=== PATIENT | female | born 1965 | race Caucasian/White ===

== ENCOUNTER 2017-05-25 10:05 | Emergency (ER) | payer MEDICARE, MEDICAID ==
[2017-05-25 10:29] VITALS: BP 118/53
--- NOTE | 2017-05-25 11:17 | UC ---
Respiratory Complaint HPI - HPI Summary HPI Summary: Cough began last night, 3 days ago FSBS >400 today and yesterday in the 's, patient lives in custodial and did get a flu vaccine c/o pain in the center of her chest with cough and deep breaths - History of Current Complaint Chief Complaint: UCRespiratory Stated Complaint: CONGESTION/COUGH Time Seen by Provider: 05/25/17 11:03 Hx Obtained From: Patient ?: No Onset/Duration: Sudden Onset, Lasting Days - 1, Still Present Timing: Constant Severity Initially: Mild Severity Currently: Mild Character: Cough: Nonproductive Aggravating Factors: Nothing Alleviating Factors: Nothing Associated Signs And Symptoms: Positive: Pleuritic Chest Pain, URI - Allergies/Home Medications Allergies/Adverse Reactions: Allergies Allergy/AdvReac Type Severity Reaction Status Date / Time Aripiprazole [From Abilify] Allergy Unknown Verified 05/25/17 10:30 Reaction Details Penicillins Allergy Unknown Verified 10/13/13 14:26 Reaction Details Home Medications: Home Medications See [facility] Med List 05/25/16 05/25/17 [History] PMH/Surg Hx/FS Hx/Imm Hx Previously Healthy: No Endocrine History: Diabetes, Hypothyroidism GI/ History: Gastroesophageal Reflux Psychological History: Depression, Other - MR/DD Other Psychological History: MR/DD - Surgical History Surgical History: Yes Surgery Procedure, Year, and Place: [facility]. carpal tunnel - Family History Known Family History: Positive: None - Social History Occupation: Disabled Lives: Residential Alcohol Use: None Substance Use Type: None Smoking Status (MU): Former Smoker - Immunization History Most Recent Influenza Vaccination: 2016/2017 Review of Systems Constitutional: Negative Skin: Negative Eyes: Negative ENT: Negative Respiratory: Cough Cardiovascular: Chest Pain - with cough and deep breath Gastrointestinal: Negative Genitourinary: Negative Motor: Negative Neurovascular: Negative Musculoskeletal: Negative Neurological: Negative Psychological: Negative Is Patient Immunocompromised?: No All Other Systems Reviewed And Are Negative: Yes Physical Exam Triage Information Reviewed: Yes Appearance: Well-Appearing, Ill-Appearing - mild, Obese Vital Signs: Initial Vital Signs Temp 99.2 F 05/25/17 10:23 Pulse 74 05/25/17 10:23 Resp 20 05/25/17 10:23 BP 118/53 05/25/17 10:23 Pulse Ox 94 05/25/17 10:23 Vital Signs Reviewed: Yes Eye Exam: Normal Eyes: Positive: Conjunctiva Clear ENT Exam: Normal ENT: Positive: Normal ENT inspection, Hearing grossly normal, Pharynx normal, TMs normal, Uvula midline. Negative: Nasal congestion, Tonsillar swelling, Tonsillar exudate, Trismus, Muffled voice, Hoarse voice, Dental tenderness, Sinus tenderness Dental Exam: Normal Neck exam: Normal Neck: Positive: Supple, Nontender, No Lymphadenopathy Respiratory Exam: Normal Respiratory: Positive: Chest non-tender, Lungs clear, Normal breath sounds, No respiratory distress, No accessory muscle use Cardiovascular Exam: Normal Cardiovascular: Positive: RRR, No Murmur, Pulses Normal, Brisk Capillary Refill Musculoskeletal Exam: Normal Musculoskeletal: Positive: Strength Intact, ROM Intact, No Edema Neurological Exam: Normal Neurological: Positive: Alert, Muscle Tone Normal Psychological Exam: Normal Psychological: Positive: Normal Response To Family Skin Exam: Normal UC Diagnostic Evaluation - Laboratory O2 Sat by Pulse Oximetry: 94 Diagnostic Studies Comment: FSBS 192, Influenza A/B (-) - Radiology Xray Interpretation: No Acute Changes Radiology Interpretation Completed By: ED Physician, Radiologist Respiratory Course/Dx - Course Course Of Treatment: Zithromax, Mucinex, albuterol, increase fluids, follow with pcp or return PRN - Differential Dx/Diagnosis Provider Diagnoses: Acute Bronchitis Discharge - Discharge Plan Condition: Stable Disposition: HOME Prescriptions: Albuterol HFA INHALER* [Ventolin HFA Inhaler*] 2 puff INH Q4H PRN #1 mdi PRN Reason: Cough Azithromycin TAB* [Zithromax TAB (Z-LEN) 250 mg #6 tabs] 2 tab PO .TODAY, THEN 1 DAILY #1 len guaiFENesin ER TAB [Mucinex*] 600 mg PO BID PRN #15 tab.er PRN Reason: Cough Patient Education Materials: Acute Bronchitis (ED) Referrals: Tracee Mercer MD [Primary Care Provider] - If Needed
--- NOTE | 2017-05-25 11:39 | RAD ---
HISTORY: Cough, chest pain COMPARISONS: None VIEWS: 4: Frontal dual-energy and lateral views of the chest. FINDINGS: CARDIOMEDIASTINAL SILHOUETTE: The cardiomediastinal silhouette is normal. LITO: The lito are normal. PLEURA: The costophrenic angles are sharp. No pleural abnormalities are noted. LUNG PARENCHYMA: The lungs are clear. ABDOMEN: The upper abdomen is clear. There is no subphrenic gas. BONES AND SOFT TISSUES: Degenerative changes are noted along the spine. OTHER: None. IMPRESSION: NO ACTIVE CARDIOPULMONARY DISEASE.
[2017-05-25] MEDS ORDERED: Azithromycin TAB* 250 MG PO ONE (11:52)
[2017-05-25] MEDS ORDERED: Albuterol HFA INHALER* 8 gm MDI INH ONE (11:53)
== END 2017-05-25 12:13 | disposition home or self-care (01) ==
LOC: UCCORT 10:05
DX: J20.9 Acute bronchitis, unspecified (principal); R05 Cough; R07.89 Other chest pain; E11.9 Type 2 diabetes mellitus without complications; Z79.84 Long term (current) use of oral hypoglycemic drugs; E03.9 Hypothyroidism, unspecified; K21.9 Gastro-esophageal reflux disease without esophagitis; F32.9 Major depressive disorder, single episode, unspecified; E66.9 Obesity, unspecified; Z90.49 Acquired absence of other specified parts of digestive tract; Z88.0 Allergy status to penicillin; Z88.8 Allergy status to other drugs, medicaments and biological substances; Z87.891 Personal history of nicotine dependence
CPT/HCPCS: 71046; 87502; 99213; A9270-GY; G0463

== ENCOUNTER 2018-01-05 12:28 | Emergency (ER) | payer MEDICARE, MEDICAID ==
--- NOTE | 2018-01-05 12:50 | UC ---
Throat Pain/Nasal Rocky HPI - HPI Summary HPI Summary: 52 yo female presents accompanied by caser up with complaints of a sore throat for the last month and right eye redness and drainage since yesterday. Anchorman tells me that pt uses a CPAP at bedtime and sometimes it will leak causing and drain around her nose and eyes - will sometimes wake in the morning with a red itchy eye that goes away. Yesterday this happened, but this morning woke with crusting, yellow drainage, and redness. Does not wear glasses or contacts. Denies pain or injury. Denies fever, chills, cough. - History of Current Complaint Stated Complaint: SORE THROAT/RT EYE Time Seen by Provider: 01/05/18 12:50 Hx Obtained From: Patient, Family/Anchorman Onset/Duration: Sudden Onset Pain Intensity: 0 Pain Scale Used: 0-10 Numeric - Allergies/Home Medications Allergies/Adverse Reactions: Allergies Allergy/AdvReac Type Severity Reaction Status Date / Time aripiprazole [From Abili] Allergy Mild Unknown Verified 01/05/18 13:02 Reaction Details Penicillins Allergy Mild Unknown Verified 01/05/18 13:02 Reaction Details Home Medications: Home Medications Bupropion XL* [Wellbutrin XL *] 150 mg PO DAILY 01/05/18 [History Confirmed ] PMH/Surg Hx/FS Hx/Imm Hx Endocrine History: Diabetes, Hypothyroidism GI/ History: Gastroesophageal Reflux - Surgical History Surgical History: Yes Surgery Procedure, Year, and Place: [facility]. carpal tunnel - Family History Known Family History: Positive: None - Social History Occupation: Disabled Lives: Assisted Living Alcohol Use: None Substance Use Type: None Smoking Status (MU): Former Smoker - Immunization History Most Recent Influenza Vaccination: 2016/2017 Review of Systems Constitutional: Negative Skin: Negative Eyes: Drainage, Eye Redness Respiratory: Negative Cardiovascular: Negative Neurovascular: Negative Neurological: Negative Psychological: Negative All Other Systems Reviewed And Are Negative: Yes Physical Exam - Summary Physical Exam Summary: GENERAL: NAD. WDWN. No pain distress. SKIN: No rashes, sores, lesions, or open wounds. HEENT: Head: AT/NC Eyes: EOM intact. RIGHT EYE: Conjunctiva with mild erythema. Scleral injection. 3mm cloudy haze overlying the center cornea above the anterior chamber. Moderate yellow purulent discharge. LEFT EYE: Conjunctiva clear without inflammation or discharge. Ears: Hearing grossly normal. TMs intact, no bulging, erythema, or edema. Nose: Nasal mucosa pink and moist. NTTP maxillary and frontal sinus. Throat: Posterior oropharynx without exudates, erythema, or tonsillar enlargement. Uvula midline. NECK: Supple. Nontender. No lymphadenopathy. CHEST: CTAB. No r/r/w. No accessory muscle use. Breathing comfortably and in no distress. CV: RRR. Without m/r/g. Pulses intact. Brisk cap refill. NEURO: Alert. CN II-XII grossly intact. PSYCH: Age appropriate behavior. 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 Suspect conjunctivitis, but given the new haze appearance on her cornea - there is a suspicion for an ulcer or other pathology. Therefore advised to f/u with ophthalmology as soon as possible. - Differential Dx/Diagnosis Provider Diagnoses: Right eye conjunctivitis Discharge - Sign-Out/Discharge Documenting (check all that apply): Patient Departure - Discharge Plan Condition: Stable Disposition: HOME Prescriptions: Ofloxacin 0.3%(Ophth)(Nf) [Ocuflox OPTH 0.3%(NF)] 1 drop RIGHT EYE Q2HR #1 btl Ofloxacin 0.3%(Ophth)(Nf) [Ocuflox OPTH 0.3%(NF)] 1 drop RIGHT EYE Q2HR #1 btl Patient Education Materials: Conjunctivitis (ED) Referrals: Tracee Mercer MD [Primary Care Provider] - Artemio Price MD [Medical Doctor] - As Soon As Possible Nikki Phelps MD [Medical Doctor] - As Soon As Possible Additional Instructions: If you develop a fever, shortness of breath, chest pain, new or worsening symptoms - please call your PCP or go to the ED. 1) Please follow up with an eye doctor as soon as possible for further evaluation - Billing Disposition and Condition Condition: STABLE Disposition: Home
[2018-01-05 13:02] VITALS: BP 108/58
== END 2018-01-05 13:18 | disposition home or self-care (01) ==
LOC: UCCORT 12:28
DX: H10.9 Unspecified conjunctivitis (principal); Z99.89 Dependence on other enabling machines and devices; Z87.891 Personal history of nicotine dependence; Z88.0 Allergy status to penicillin; Z88.8 Allergy status to other drugs, medicaments and biological substances
CPT/HCPCS: 99212; G0463

== ENCOUNTER 2018-03-30 09:50 | Emergency (ER) | payer MEDICARE, MEDICAID ==
[2018-03-30 11:32] VITALS: BP 128/67
--- NOTE | 2018-03-30 11:50 | UC ---
Knee Pain HPI - HPI Summary HPI Summary: Pt is accompanied by caregiver. Pt lives in a [place] [facility] [place] and caregiver reports that pt, rolled out of bed, unwitnessed and was found on the floor with c/o left knee pain. Pt is ambulating with walker without c/o pain. Able to bear full weight. - History of Current Complaint Chief Complaint: UCLowerExtremity Stated Complaint: LEFT KNEE INJURY Time Seen by Provider: 03/30/18 11:37 Hx Obtained From: Patient, Family/Maintenance Plumber ?: No Onset/Duration: Sudden Onset Severity Initially: Mild Severity Currently: Mild Pain Intensity: 5 Character: Dull, Aching Aggravating Factor(s): Movement, Weight Bearing Alleviating Factor(s): Rest, Position Associated Signs And Symptoms: Positive: Negative Able to Bear Weight: Yes - Risk Factors Septic Arthritis Risk Factor: Negative Gout Risk Factor: Age ^ 40, Obesity - Allergies/Home Medications Allergies/Adverse Reactions: Allergies Allergy/AdvReac Type Severity Reaction Status Date / Time aripiprazole [From AbiLeverOSIsoft] Allergy Mild Unknown Verified 03/30/18 11:03 Reaction Details Penicillins Allergy Mild Unknown Verified 03/30/18 11:03 Reaction Details Home Medications: Home Medications Acetaminophen [Tylenol Extra Strength] 500 mg PO Q6H PRN 03/30/18 [History Confirmed 03/30/18] Alendronate Sodium 70 mg PO WEEKLY 03/30/18 [History Confirmed 03/30/18] Asenapine Maleate [Saphris] 2.5 mg SL BEDTIME 03/30/18 [History Confirmed ] Asenapine Maleate [Saphris] 5 mg SL DAILY 03/30/18 [History Confirmed 03/30/18] BuPROPion XL* [Bupropion XL*] 300 mg PO DAILY 03/30/18 [History Confirmed ] Calcium Carbonate/Vitamin D3 [Caltrate 600 + D Soft Chew Tab] 1 each PO BID 01/07 [History Confirmed 03/30/18] Carboxymethylcell/Glycerin/Pf [Optive Sensitive] 1 reuben OP 03/30/18 [History] Cholecalciferol TAB* [Vitamin D TAB*] 1,000 unit PO DAILY 03/30/18 [History Confirmed 03/30/18] DULoxetine CAP* [Cymbalta CAP*] 60 mg PO BID 03/30/18 [History Confirmed 01/07] Docusate CAP* [Colace Cap*] 100 mg PO BID PRN 03/30/18 [History Confirmed ] Doxepin (NF) [Silenor (NF)] 10 mg PO DAILY 03/30/18 [History Confirmed 03/30/18] Ibuprofen TAB* [Motrin TAB* 600 MG] 600 mg PO Q6H PRN 03/30/18 [History Confirmed 03/30/18] Insulin Aspart [Novolog Penfill] unit SC 03/30/18 [History] Insulin Degludec [Tresiba Flextouch] 27 unit SC DAILY 03/30/18 [History Confirmed 03/30/18] Levothyroxine TAB* [Synthroid TAB*] 175 mcg PO DAILY 03/30/18 [History Confirmed 03/30/18] Liquid Antiacid PRN 03/30/18 [History] LoraTADine TAB(NF) [Claritin 10 MG TAB(NF)] 10 mg PO DAILY PRN 03/30/18 [ History Confirmed 03/30/18] Mineral Oil/Petrolatum,White [Refresh P.m] 1 oin OP 03/30/18 [History] Nystatin TOP POWDER* 1 applic TOPICAL BID PRN 03/30/18 [History Confirmed ] Omeprazole CAP* [Prilosec CAP* 20 MG] 40 mg PO DAILY 03/30/18 [History Confirmed 03/30/18] Oxybutynin TAB* [Ditropan TAB*] 10 mg PO DAILY 03/30/18 [History Confirmed 03/30] Simvastatin [Zocor] 40 mg PO DAILY 03/30/18 [History Confirmed 03/30/18] guaiFENesin [Mucinex] 600 mg PO Q12H PRN 03/30/18 [History Confirmed 03/30/18] PMH/Surg Hx/FS Hx/Imm Hx Previously Healthy: Yes - lives in [place] [facility] due to cognitive disability - Surgical History Surgical History: Yes Surgery Procedure, Year, and Place: [facility]. carpal tunnel - Family History Known Family History: Positive: Cardiac Disease - Social History Occupation: Disabled Lives: [facility] Alcohol Use: None Substance Use Type: None Smoking Status (MU): Former Smoker Have You Smoked in the Last Year: No When Did the Patient Quit Smoking/Using Tobacco: HIGH SCHOOL - Immunization History Most Recent Influenza Vaccination: Vaccination Up to Date: Yes Review of Systems All Other Systems Reviewed And Are Negative: Yes Constitutional: Positive: Negative Skin: Positive: Negative Eyes: Positive: Negative ENT: Positive: Negative Respiratory: Positive: Negative Cardiovascular: Positive: Negative Gastrointestinal: Positive: Negative Genitourinary: Positive: Negative Motor: Positive: Negative Neurovascular: Positive: Negative Musculoskeletal: Positive: Arthralgia - left knee Neurological: Positive: Negative Psychological: Positive: Negative Is Patient Immunocompromised?: No Physical Exam Triage Information Reviewed: Yes Appearance: Well-Appearing Vital Signs: Initial Vital Signs Temp 97.5 F 03/30/18 11:23 Pulse 57 03/30/18 11:23 Resp 20 03/30/18 11:23 BP 128/67 03/30/18 11:23 Pulse Ox 99 03/30/18 11:23 Vital Signs Reviewed: Yes Eye Exam: Normal ENT Exam: Normal ENT: Positive: Hearing grossly normal Neck exam: Normal Respiratory Exam: Normal Respiratory: Positive: No respiratory distress Musculoskeletal Exam: Normal Musculoskeletal: Positive: Strength Intact, ROM Intact, No Edema Neurological Exam: Normal Psychological Exam: Normal Skin Exam: Normal Knee Pain Course/Dx - Differential Dx/Diagnosis Differential Diagnosis/HQI/PQRI: Contusion, Fracture (Closed), Sprain, Strain Provider Diagnoses: left knee contusion Discharge - Sign-Out/Discharge Documenting (check all that apply): Patient Departure All imaging exams completed and their final reports reviewed: No Studies - Discharge Plan Condition: Stable Disposition: HOME Patient Education Materials: Knee Pain (ED), R.I.C.E. Treatment (ED) Referrals: Tracee Mercer MD [Primary Care Provider] - If Needed Gonzales Gutierrez MD [Medical Doctor] - If Needed - Billing Disposition and Condition Condition: STABLE Disposition: Home
== END 2018-03-30 11:59 | disposition home or self-care (01) ==
LOC: UCCORT 09:50
DX: S80.02XA Contusion of left knee, initial encounter (principal); Z88.8 Allergy status to other drugs, medicaments and biological substances; Z88.0 Allergy status to penicillin; Z79.4 Long term (current) use of insulin; Z87.891 Personal history of nicotine dependence; W06.XXXA Fall from bed, initial encounter; Y92.9 Unspecified place or not applicable
CPT/HCPCS: 99212; G0463

== ENCOUNTER 2018-07-17 14:50 | Emergency (ER) | payer MEDICARE, MEDICAID ==
--- OUTSIDE RECORDS SUMMARY | 2018-07-17 15:06 | XMS REPORT | Continuity of Care Document ---
:1965 External Reference #:[id number] Author Name Yocasta Barrera Care Team Providers Name Role Phone Westley Johnson M.D. 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 Payers Type Date Identification Numbers Payment Provider Subscriber Policy Number: [id number] Medicare Michelle Watts PayID: [id number] [address] [place] [address] Policy Number: [id number] Medicaid Michelle Watts PayID: [id number] [address] [place] [address] Advance Directives Description No Information Available Problems Description No Information Family History Date Family Member(s) Problem(s) Comments Father Non Contributory Mother Non Contributory Social History Type Date Description Comments Sex Unknown Marital Status Single Occupation Unemployed Tobacco Use Start: Unknown Never Smoked Cigarettes ETOH Use Never used alcohol Recreational Drug Use Never Used Drugs Allergies, Adverse Reactions, Alerts Date Description Reaction Status Severity Comments 07/22/2014 Penicillin GI upset Active 06/07/2016 Abilify Active Medications Medication Date Status Form Strength Qnty SIG Indications Ordering Provider Acetaminophen Active Tablets 500mg as needed Unknown /0000 Alendronate Active Tablets 70mg Weekly Unknown Sodium /0000 Vitamin D3 Active Capsules 1000Unit Daily Unknown /0000 Duloxetine HCL Active Caps DR 60mg 1 PO qd Unknown /0000 Part Levothyroxine Active 1 PO qd Unknown Sodium /0000 Docusate Active Capsules 100mg 1 PO bid Unknown /0000 Doxepin HCL Active Capsules 10mg 1- 2 Unknown /0000 capsules by mouth at bedtime as needed insomnia Guaifenesin-DM Active Liquid 100-10mg/ 2 tspn by Unknown /0000 5ML mouth q4 hour as needed cough Lantus Active Solution 100Unit/M as directed Unknown /0000 L Novolog Flexpen 00 Active Solution 100Unit/M not within Unknown /0000 Pen-Inject L 4 hours of last dose. ss: 150-200: 2 u; 201-250: 4 u; 251-300: 6u; 301-350: 8u; >350: 10u also: 3u at breakfast Omeprazole Active Capsules DR 20mg 1 by mouth Unknown / every day Saphris Active Tablets Sub 10mg 1 tab Unknown / sublingual Calcium Active Tablets 600-200 1 by mouth Unknown /0000 twice a day Simvastatin Active Tablets 40mg 1 by mouth Unknown / every day Tramadol HCL Active Tablets 50mg 1 tab q6h. Unknown / for pain Triple Active Ointment Unknown Antibiotic Ventolin HFA Active Aerosol 108(90Bas 1-2 Unknown / e) inhalations mcg/Act every 4 hours as needed Oxybutynin Active Tablets ER 10mg Unknown Chloride ER / 24HR Loratadine Active Capsules 10mg 1 by mouth Unknown / every day Bupropion HCL Active Tablets 75mg Unknown / Fluticasone 07/22 Hx Suspension 50mcg/Act 1unit 2 sprays Alex Propionate s each Westley, - nostril M.D. 04/06 Saline Nasal 07/22 Hx Solution 0.65% 10ml 2 squirts Kelsey Johnson each Westley, Infants/Children - nostril M.D. s 04/06 hours as needed Allopurinol Hx Tablets 300mg 1 by mouth Unknown /0000 every day - 04/06 Dextrose Hx Tablet 4gm Once Daily Unknown /0000 as Needed - For 04/06 Hypoglycemi /2016 a Esomeprazole Hx Solution 40mg Once Daily Unknown Sodium /0000 Rec - 04/06 Furosemide Hx Tablets 20mg 1 by mouth Unknown / every day - 04/06 Levemir 00 Hx Solution 100Unit/M Unknown /0000 L - 04/06 Levocetirizine Hx Tablets 5mg 1 by mouth Unknown Dihydrochloride /0000 every day - 04/06 Mirtazapine 00 Hx Tablets 15mg Unknown /0000 Dispers - 04/06 Potassium 00/00 Hx Capsules ER 10Meq 1 by mouth Unknown Chloride ER /0000 every other - day 04/06 Quetiapine Hx Tablets 200mg qhs Unknown Fumarate /0000 - 04/06 Tolterodine Hx Caps ER 4mg 1 po qd Unknown Tartrate ER /0000 24HR - 04/06 Tramadol HCL Hx Tablets 50mg 1-2. tab Unknown /0000 q4h. for - pain 04/06 Xarelto 00 Hx Tablets 20mg 1 by mouth Unknown /0000 every day - 04/06 Liquid Antacid Hx 10mL q 4 Unknown /0000 hours if - needed 01/03 Xarelto 00 Hx Tablets 20mg 1 by mouth Unknown /0000 every day - 01/03 Immunizations Description No Information Available Vital Signs Date Vital Result Comment 06/19/2018 3:06pm Weight 287.00 lb Height 59.5 inches 4'11.50" BMI (Body Mass Index) 57.0 kg/m2 BP Systolic 146 mmHg BP Diastolic 64 mmHg Heart Rate 85 /min O2 % BldC Oximetry 96 % Body Temperature 98.5 F Pain Level 0 06/20/2017 11:36am Weight 260.00 lb Height 59.5 inches 4'11.50" BMI (Body Mass Index) 51.6 kg/m2 BP Systolic 155 mmHg BP Diastolic 65 mmHg Heart Rate 84 /min O2 % BldC Oximetry 93 % Body Temperature 98.5 F Pain Level 0 01/04/2017 11:31am Weight 261.00 lb Height 59.5 inches 4'11.50" BMI (Body Mass Index) 51.8 kg/m2 BP Systolic 130 mmHg BP Diastolic 73 mmHg Heart Rate 80 /min O2 % BldC Oximetry 92 % Body Temperature 97.3 F Harvey Score 18 06/07/2016 9:52am Weight 277.00 lb Height 59.5 inches 4'11.50" BMI (Body Mass Index) 55.0 kg/m2 BP Systolic 128 mmHg BP Diastolic 80 mmHg Heart Rate 71 /min O2 % BldC Oximetry 96 % Body Temperature 98.3 F Harvey Score 1 04/07/2016 2:02pm Weight 278.50 lb Height 59.5 inches 4'11.50" BMI (Body Mass Index) 55.3 kg/m2 BP Systolic 118 mmHg BP Diastolic 78 mmHg Heart Rate 78 /min O2 % BldC Oximetry 98 % Body Temperature 98.9 F Harvey Score 11 10/16/2014 2:34pm Weight 286.00 lb Height 59.5 inches 4'11.50" BMI (Body Mass Index) 56.8 kg/m2 BP Systolic 122 mmHg BP Diastolic 84 mmHg Heart Rate 83 /min O2 % BldC Oximetry 96 % Body Temperature 97.8 F Harvey Score 17 07/22/2014 11:26am Weight 287.00 lb Height 60 inches 5'0" BMI (Body Mass Index) 56.0 kg/m2 BP Systolic 126 mmHg BP Diastolic 72 mmHg Heart Rate 86 /min O2 % BldC Oximetry 98 % Body Temperature 98.2 F Harvey Score 15 Neck Circumference in inches 18.5 Pain Level 0 Results Description No Information Available Procedures Date Code Description Status 08/15/2014 14247 Sleep Stage 4 Or More Cpap Titra Completed 07/24/2014 76907 Sleep Staging 4Or More Para Completed Encounters Type Date Location Provider Dx Diagnosis Office Visit 06/20/2017 Main Office Westley Johnson M.D. K21.9 Gastro- esophageal 11:00a reflux disease without esophagitis G47.33 Obstructive sleep apnea (adult) (pediatric) E66.9 Obesity, unspecified Office Visit 01/04/2017 11:15a Main Office Keena A G47.33 Obstructive sleep MARIIA Marcum apnea (adult) (pediatric) Office Visit 06/07/2016 10:00a Main Office Westley Johnson G47.33 Kyaw sena MKasey apnea (adult) (pediatric) E66.9 Obesity, unspecified Office Visit 04/07/2016 2:15p Main Office Keena A G47.33 Obstructive sleep MARIIA Marcum apnea (adult) (pediatric) Office Visit 10/16/2014 2:45p Main Office Keena A 327.23 Obstructive Sleep Marcum, CARBIDER Apnea Adult & Pediatric Office Visit 08/13/2014 9:15a Main Office Keena A 327.23 Obstructive Sleep Jossue, CARBIDER Apnea Adult & Pediatric 786.09 Dyspnea & Respiratory Abnormalities Other Office Visit 07/22/2014 11:15a Main Office Keena A 786.09 Dyspnea & Marcum, CARBIDER Respiratory Abnormalities Other 327.23 Obstructive Sleep Apnea Adult & Pediatric Office Visit 07/01/2006 9:45a Main Office Westley Johnson, 780.53 Apnea - W/ M.D. Hypersomnia, Unspecified Plan of Treatment No Information Available
--- OUTSIDE RECORDS SUMMARY | 2018-07-17 15:06 | XMS REPORT | Continuity of Care Document ---
:1965 External Reference #:[id number] Author Name Keena Marcum NP Address [address] [place] [address] Care Team Providers Name Role Phone Westley Johnson M.D. Care Team Information Healthcare Or Medical Unavailable Payers Type Date Identification Numbers Payment Provider Subscriber Policy Number: [id number] Medicare Michelle Watts PayID: [id number] [address] [place] [address] Policy Number: [id number] Medicaid Michelle Watts PayID: [id number] [address] [place] [address] Advance Directives Description No Information Available Problems [...] Vitamin D3 Active Capsules 1000Unit Daily Unknown / Duloxetine HCL Active Caps DR 60mg 1 PO qd Unknown /0000 Part Levothyroxine Active 1 PO qd Unknown Sodium /0000 Docusate Active Capsules 100mg 1 PO bid Unknown / Doxepin HCL Active Capsules 10mg 1- 2 Unknown /0000 capsules by mouth at bedtime as needed insomnia Guaifenesin-DM Active Liquid 100-10mg/ 2 tspn by Unknown /0000 5ML mouth q4 hour as needed cough Lantus 00 Active Solution 100Unit/M as directed Unknown /0000 L Novolog Flexpen Active Solution 100Unit/M not within Unknown /0000 [...] Active Tablets 50mg 1 tab q6h. Unknown for pain Triple Active Ointment Unknown Ventolin HFA Active Aerosol 108(90Bas 1-2 Unknown / e) inhalations mcg/Act every 4 hours as needed Oxybutynin Active Tablets ER 10mg Unknown Chloride ER 24HR Loratadine Active Capsules 10mg 1 by [...] /0000 as Needed - For 04/06 Hypoglycemi /2015 a Esomeprazole Hx Solution 40mg Once Daily Unknown Rec - 04/06 Furosemide Hx Tablets 20mg 1 by mouth Unknown / every day - 04/06 Levemir Hx Solution 100Unit/M Unknown / L - 04/06 Levocetirizine 00/00 Hx Tablets 5mg 1 by mouth Unknown Dihydrochloride /0000 every day - 04/06 Mirtazapine 00/00 Hx Tablets 15mg Unknown /0000 Dispers - 04/06 Potassium 00/00 Hx Capsules ER 10Meq 1 by mouth Unknown Chloride ER /0000 every other - day 04/06 Quetiapine Hx Tablets 200mg qhs Unknown Fumarate /0000 - 04/06 Tolterodine Hx Caps ER 4mg 1 po qd Unknown Tartrate ER /0000 24HR - 04/06 Tramadol HCL 00 Hx Tablets 50mg 1-2. tab Unknown /0000 q4h. for - pain 04/06 Xarelto Hx Tablets 20mg 1 by mouth Unknown /0000 every day - 04/06 Liquid Antacid 00 Hx 10mL q 4 Unknown /0000 hours [...] Oximetry 92 % Body Temperature 97.3 F Eveleth Score 18 06/07/2016 9:52am Weight 277.00 lb Height 59.5 inches 4'11.50" BMI (Body Mass Index) 55.0 kg/m2 BP Systolic 128 mmHg BP Diastolic 80 mmHg Heart Rate 71 /min O2 % BldC Oximetry 96 % Body Temperature 98.3 F Eveleth Score 1 04/07/2016 2:02pm Weight 278.50 lb Height 59.5 inches 4'11.50" BMI (Body Mass Index) 55.3 kg/m2 BP Systolic 118 mmHg BP Diastolic 78 mmHg Heart Rate 78 /min O2 % BldC Oximetry 98 % Body Temperature 98.9 F Eveleth Score 11 10/16/2014 2:34pm Weight 286.00 lb Height 59.5 inches 4'11.50" BMI (Body Mass Index) 56.8 kg/m2 BP Systolic 122 mmHg BP Diastolic 84 mmHg Heart Rate 83 /min O2 % BldC Oximetry 96 % Body Temperature 97.8 F Eveleth Score 17 07/22/2014 11:26am Weight 287.00 lb Height 60 inches 5'0" BMI (Body Mass Index) 56.0 kg/m2 BP Systolic 126 mmHg BP Diastolic 72 mmHg Heart Rate 86 /min O2 % BldC Oximetry 98 % Body Temperature 98.2 F Eveleth Score 15 Neck Circumference in inches 18.5 Pain Level 0 Results Description No Information Available Procedures Date Code Description Status 08/15/2014 44047 Sleep Stage 4 Or More Cpap Titra Completed 07/24/2014 82913 Sleep Staging 4Or More Para Completed Encounters Type Date Location Provider Dx Diagnosis Office Visit 06/19/2018 Main Office Keena Marcum G47.33 Obstructive sleep 2:45p [employer] apnea (adult) (pediatric) E66.9 Obesity, unspecified Office Visit 06/20/2017 11:00a Main Office Westley Johnson, K21.9 Gastro- esophageal reflux M.D. disease without esophagitis G47.33 Obstructive sleep apnea (adult) (pediatric) E66.9 Obesity, unspecified Office Visit 01/04/2017 11:15a Main Office Keena Limon G47.33 Obstructive sleep MARIIA Marcum apnea (adult) (pediatric) Office Visit 06/07/2016 10:00a Main Office Westley Johnson G47.33 Obstructive sleep M.D. apnea (adult) (pediatric) E66.9 Obesity, unspecified Office Visit 04/07/2016 2:15p Main Office Keena Limon G47.33 Obstructive sleep MARIIA Marcum apnea (adult) (pediatric) Office Visit 10/16/2014 2:45p Main Office Keena A 327.23 Obstructive Sleep Jossue, [employer] Apnea Adult & Pediatric Office Visit 08/13/2014 9:15a Main Office Keena Limon 327.23 Obstructive Sleep Jossue, [employer] Apnea Adult & Pediatric 786.09 Dyspnea & Respiratory Abnormalities Other Office Visit 07/22/2014 11:15a Main Office Keena Limon 786.09 Dyspnea & Jossue, [employer] Respiratory Abnormalities Other 327.23 Obstructive Sleep Apnea Adult & Pediatric Office Visit 07/01/2006 9:45a Main Office Westley Johnson, 780.53 Apnea - W/ M.D. Hypersomnia, Unspecified Plan of Treatment No Information Available
[2018-07-17 15:24] VITALS: BP 142/66
--- NOTE | 2018-07-17 15:25 | UC ---
Throat Pain/Nasal Rocky HPI - HPI Summary HPI Summary: Patient resident at [facility] home. Patient here with home health care coordinator. Patient with congestion nonproductive cough for the last 36 hours. No fevers. Patient is a diabetic and her sugars have been running between 303 50. Patient was checked and has no ketones in her urine after lunch. [employer] Safety Engineer states there are here to make sure she doesn't have flu - pcp unable to see her today, Another resident in the home was diagnosed with flu progressed to pneumonia and has succumb to this diagnosis today. Patient does not have a history of lung disease. Patient does have a history of sleep apnea for which she uses a CPAP machine. This is humidified with distilled water. Patient without any fevers. Patient with a cough that spoke be mostly postnasal drip. Patient is any ear pain. No sore throat. Patient continues to eat and drink well. Patient making good urine and no diarrhea. Patient with mild nausea but no vomiting. No rash. The house staff was waiting for the PCP to call him prophylactic Tamiflu. Patient is a diabetic. Patient's medications reviewed this visit - History of Current Complaint Chief Complaint: UCGeneralIllness Stated Complaint: CONGESTION Time Seen by Provider: 07/17/18 15:20 Hx Obtained From: Patient Pain Intensity: 10 - Allergies/Home Medications Allergies/Adverse Reactions: Allergies Allergy/AdvReac Type Severity Reaction Status Date / Time aripiprazole [From Abilify] Allergy Mild Unknown Verified 07/17/18 15:07 Reaction Details Penicillins Allergy Mild Unknown Verified 07/17/18 15:07 Reaction Details PMH/Surg Hx/FS Hx/Imm Hx Endocrine History: Diabetes Cardiovascular History: Hypertension - Surgical History Surgical History: Yes Surgery Procedure, Year, and Place: [facility]. carpal tunnel - Family History Known Family History: Positive: None, Cardiac Disease - Social History Lives: [place] - [facility] Alcohol Use: None Substance Use Type: None Smoking Status (MU): Former Smoker Have You Smoked in the Last Year: No When Did the Patient Quit Smoking/Using Tobacco: HIGH SCHOOL - Immunization History Most Recent Influenza Vaccination: 2017/2018 Vaccination Up to Date: Yes Review of Systems All Other Systems Reviewed And Are Negative: Yes Constitutional: Positive: Negative Skin: Positive: Negative ENT: Positive: Nasal Discharge, Sinus Congestion Respiratory: Positive: Cough Is Patient Immunocompromised?: No Physical Exam - Summary Physical Exam Summary: Vital Signs Reviewed: Yes A+Ox3, no distress Eyes: Conjunctiva Clear, JANELLE. EOM intact and full ENT: Hearing grossly normal TM x 2 clear - pt with mild cerumen left canal - able to move with curette, turbinates inflammed and boggy, + PND, mmoist, uvula midline, no exudate, no erythema Neck: Positive: Supple Respiratory: Positive: No respiratory distress, No accessory muscle use + CTA throughout no w/r, no cough Cardiovascular: RRR nl s1, s2 no m/r CBT <2 sec abd soft + BS nt/nd no guarding, no distension Musculoskeletal Exam: YEN x 4 without difficulty Strength Intact, ROM Intact Neurological: Positive: Alert, + sensation throughout Psychological: Positive: Normal Response, appropriate Skin: Positive: no rash, no ecchymosis Vital Signs: Initial Vital Signs Temp 97.1 F 07/17/18 15:14 Pulse 63 07/17/18 15:14 Resp 14 07/17/18 15:14 BP 142/66 07/17/18 15:14 Pulse Ox 100 07/17/18 15:14 Throat Pain/Nasal Course/Dx - Course Course Of Treatment: Patient presents to urgent care with 2 days of sinus congestion, postnasal drip, and intermittent cough. No fevers or chills. Patient eating and drinking normally. Patient with mild nausea but no vomiting. Patient was in [facility] residents had a house member recently passed from pneumonia related to influenza. Patient did get the flu shot. Here requesting flu testing. Patient without any other complaints. Patient well-appearing. Vital signs stable. Patient noted to have sinus congestion and postnasal drip. Patient was from her left ear dose able to be moved antibiotic curette by me. Patient's in [place] test was negative. We'll start patient on Tamiflu prophylaxis. Viral supportive care at this time. 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 Strict return precautions if patient is uncontrolled fevers shortness of breath or any other concerns. Understanding and agreement with plan. BP mildly elevated - recommended f/u with PCP - Differential Dx/Diagnosis Provider Diagnosis: URI (upper respiratory infection) Discharge - Sign-Out/Discharge Documenting (check all that apply): Patient Departure All imaging exams completed and their final reports reviewed: No Studies - Discharge Plan Condition: Stable Disposition: HOME Prescriptions: Oseltamivir CAP* [Tamiflu CAP*] 75 mg PO DAILY #10 cap Patient Education Materials: Upper Respiratory Infection (ED) Referrals: Tracee Mercer MD [Primary Care Provider] - Additional Instructions: - Okay to take (Advil. Motrin) 600mg and/or Tylenol 1000mg as previously prescirbed for pain or fever. Take with food. Do NOT take for more then 4-5 days - Stay well hydrated - drink plenty of non-alcoholic, non-caffinated beverages - Okay to take Mucinex as prescribed for congestion - These infections are spread by secretions - do not share eating or drinking utensils. Clean items with your secretions - cell phone, computer mouse, TV remote. Once you start to feel better, change your pillowcase and your toothbrush. Make sure to thoroughly clean CPAP machine - humidify the air in the room where you sleep (humidifier, boil water, run a steam shower, put cups of water next to the heat register) - Get plenty of restful sleep - You have been prescribed the prophylactic dose of Tamiflu do to exposure in your home environment. Take daily as prescribed. Contact your doctor or return with questions or concerns - Contact your doctor to schedule a follow-up appointment. Contact your doctor or go to the emergency department with questions or concerns - uncontrolled fevers, vomiting, rash, uncontrolled blood glucose levels, shortness of breath, any other questions / concerns - Billing Disposition and Condition Condition: STABLE Disposition: Home
[2018-07-17 15:45] LABS: Influenza A Molecular NEGATIVE (Negative); Influenza B Molecular NEGATIVE (Negative)
== END 2018-07-17 16:02 | disposition home or self-care (01) ==
LOC: UCCORT 14:50
DX: J06.9 Acute upper respiratory infection, unspecified (principal); G47.30 Sleep apnea, unspecified; E11.9 Type 2 diabetes mellitus without complications; I10 Essential (primary) hypertension; Z99.89 Dependence on other enabling machines and devices; Z88.8 Allergy status to other drugs, medicaments and biological substances; Z88.0 Allergy status to penicillin; Z87.891 Personal history of nicotine dependence
CPT/HCPCS: 99212; G0463